=== PATIENT | male | born 1975 | race Caucasian/White ===

== ENCOUNTER 2021-08-30 07:55 | Emergency (ER) | payer BC, SELFPAY ==
--- NOTE | ~2021-08-30 | CT_ITS ---
EXAMINATION: CTA brain carotid DATE: 08/30/2021 15:16 INDICATION: Syncope. Headache. Dizziness. TECHNIQUE: Computed tomographic angiography (CTA) of the head was performed with 100 mL Omnipaque-350 intravenous contrast. CTA of the neck was performed with intravenous contrast. Automated exposure co ntrol and iterative reconstruction technique were employed. The dose-length product was 1233.77 mGy-c m. Maximum intensity projection and volume rendered 3D-reconstructions were created by the [employer] st on a separate workstation. COMPARISON: Head CT 08/30/2021 FINDINGS: HEAD CTA: There is no intracranial hemorrhage, acute infarction, or abnormal intracranial mass lesion . The ventricles are normal in size. The mastoid air cells are normal. There is mild mucosal thickeni ng in the paranasal sinuses. The orbits are normal. There are carious lesions of 2 left maxillary mol ars with periapical lucencies. Right vertebral artery is dominant. There is no significant stenosis o f basilar artery or the posterior cerebral arteries. There is no significant stenosis of the intracra nial internal carotid arteries or anterior or middle cerebral arteries. Anterior communicating artery is normal. The posterior communicating arteries are normal. There is no aneurysm. NECK CTA: There are no pathologically enlarged lymph nodes. There is no significant stenosis of the v ertebral arteries. There is mild plaque in the proximal internal carotid arteries. There is 0% stenos is of the proximal right internal carotid artery relative to normal distal artery lumen diameter (GONZÁLEZ CET criteria). There is 0% stenosis of the proximal left internal carotid artery relative to normal d istal artery lumen diameter. There is mild cervical spondylosis. IMPRESSION: 1. Normal brain. No aneurysm or significant intracranial arterial stenosis. 2. 0% stenosis of the proximal internal carotid arteries relative to normal distal artery lumen diame ters (NASCET criteria). Reviewed, dictated and finalized at location A. ICAL TEAM MANAGER IMPRESSION: 1. Normal brain. No aneurysm or significant intracranial arterial stenosis. 2. 0% stenosis of the proximal internal carotid arteries relative to normal dis markell artery lumen diameters (NASCET criteria).
--- NOTE | ~2021-08-30 | CT_ITS ---
EXAMINATION: CT brain wo con EXAM DATE: 08/30/2021 10:13 INDICATION: Headache. TECHNIQUE: Spiral CT of the head was performed without contrast. Axial, coronal and sagittal images were reviewed. The dose-length product (DLP) for this examination was 681.00 mGy-cm. The exposure w as tailored according to patient size, and iterative reconstruction (ASIR) was used as additional dos e reduction technique. There is no prior study for comparison. FINDINGS: There is no acute intraparenchymal hemorrhage. No evidence of intraparenchymal brain mass lesion. No evidence of acute infarction. There is no mass effect or midline shift. The ventricles are normal in size. There are no extra-axial collections. There are no acute calvarial fractures. T he orbits are unremarkable. Soft tissue is unremarkable. The visualized sinuses and mastoid air nikki ls are well aerated. IMPRESSION: 1. No acute intracranial findings. Reviewed, dictated and finalized at location A. SPORT RN
--- NOTE | ~2021-08-30 | XR_ITS ---
EXAMINATION: XR chest 1V EXAM DATE: 08/30/2021 08:47 INDICATION: Dizziness TECHNIQUE: Portable AP frontal chest x-ray was obtained. There are no prior studies for comparison. FINDINGS: The lungs are clear. There are no pleural effusions. The cardiomediastinal silhouette is within normal limits. There is no pneumothorax suspected. The bones and soft tissues are unremarkab le. IMPRESSION: No acute cardiopulmonary findings. Reviewed, dictated and finalized at location A. DEVELOPMENT DIRECTOR
[2021-08-30 08:01] VITALS: BP 186/105; PULSE 120; RESP 19; TEMP 36.9; O2SAT 99
--- NOTE | 2021-08-30 08:10 | ECG_ITS ---
Measurements Intervals [place] Rate: 137 P: 48 IN: 146 QRS: 104 QRSD: 99 T: -1 QT: 329 QTc: 498 Interpretive Statements SINUS TACHYCARDIA RIGHT AXIS DEVIATION BORDERLINE R WAVE PROGRESSION, ANTERIOR LEADS INFERIOR INFARCT, AGE INDETERMINATE ABNORMAL ECG Electronically Signed On 08-30-2021 10:43:09 AOC DIRECTOR COMBAT OPERATIONS OFFICER by Elvis Denton D.O.
--- NOTE | 2021-08-30 08:25 | ED.GENADULT ---
HPI - General Adult General Chief complaint: Dizziness Stated complaint: Headache,Nausea Time Seen by Provider: 08/30/21 08:17 Source: RN notes reviewed History of Present Illness HPI narrative: Patient presents emergency department from home for dizziness. Patient states that for the past month he has been having pain in his right shoulder and neck region states that he saw PCP for this and was started on Flexeril 2 days ago he states that this morning he had taken a Flexeril as well as 2 ibuprofens he states that following this he began to feel like his heart was racing he felt dizzy states is associated with a generalized headache as well as nausea. He states he feels lightheaded like he may pass out but is not had a syncopal episode he denies any fevers or chills chest pain shortness of breath abdominal pain diarrhea or any other Related Data Allergies Allergy/AdvReac Type Severity Reaction Status Date / Time No Known Allergies Allergy Verified 08/30/21 08:27 Review of Systems Review of Systems: Gen.: Denies fevers or chills Eyes: Denies eye pain or visual change ENT: Denies congestion Respiratory: Denies shortness of breath or cough CV: Denies chest pain reports heart racing and lightheadedness GI: Denies abdominal pain nausea, emesis or diarrhea denies burning, urgency, frequency or hematuria Musculoskeletal: Reports right shoulder neck pain Neuro: Reports dizziness and weakness Skin: Denies rash Except as documented, all other systems reviewed and negative [facility] Past Medical History Medical History (Updated 08/30/21 @ 16:55 by Nakul Gomez DO) Patient denies significant medical history Social History Social History (Updated 08/30/21 @ 08:27 by Nakul Gomez DO) Smoking status: Never smoker Exam Narrative: APPEARANCE: No acute distress, nontoxic, resting in bed EYES: EOMI, PERRL HEENT: Normocephalic, atraumatic, TMs clear bilaterally nares Neck: Supple no midline tenderness palpation temporal patient right paravertebral muscles C5-7 right trapezius region with point tenderness present pain worse with turning his head to the left RESPIRATORY: No respiratory distress Clear to auscultation bilaterally with no rhonchi wheezing or rales. CARDIOVASCULAR: Tachycardic and regular without murmurs rubs or gallops. ABDOMINAL: Soft, nontender, nondistended, no rebound or guarding MUSCULOSKELETAl: Moves all extremities. No clubbing, cyanosis or edema. NEURO: Awake and alert x 3. Following commands, speech normal, no focal deficits SKIN:: Warm, dry. No rashes lesions or abrasions PSYCHIATRIC: Normal affect/mood, Course Course Emergency Course: Patient states he is feeling much better at this time he has had sinus tachycardia in the low 100s at rest when I discussed with patient states he does note that on his Fitbit shows that when he does activity at work he is normally up around 1 10-1 15. Patient states he does not know what his normal heart rate is and does not have baseline on his Fitbit. He denies any chest pain or shortness of breath Called discussed Dr. Loaiza presentation and work-up. At this time with work-up negative feels patient may be discharged with follow-up as an outpatient Discussed with patient he is still having some pain in his right shoulder he still has point tenderness we will give Valium at this time as a question whether Flexeril was contributing to any symptoms Patient able to get up and ambulate in ED with myself he has no dizziness or weakness states he feels much better at this time Discussed with patient results of workup and diagnosis. Discussed need for follow-up with primary care, proper use of medication, and reasons to return to the emergency department. Patient understands and agrees to current treatment plan Vital Signs Vital signs: Vital Signs Temperature 98.5 F 08/30/21 08:01 Pulse Rate 120 H 08/30/21 08:01 Respiratory Rate 19 08/30/21 08:01 Blood Pressure 186
[2021-08-30 08:45] LABS: Basophils Absolute Auto 0.1 K/mm3 (0.0-0.1); Basophils Percent Auto 0.7 % (0.2-1.2); Eosinophils Absolute Auto 0.2 K/mm3 (0-0.3); Eosinophils Percent Auto 1.9 % (0-4.4); Hematocrit 45.8 % (42.0-52.0); Hemoglobin 15.4 g/dL (14.0-18.0); Immature Granulocyte Absolute 0.06 K/mm3 (0.00-0.031); Immature Granulocyte Percent A 0.6 % (0-0.5); Lymphocytes Absolute Auto 2.94 K/mm3 (0.9-3.2); Lymphocytes Percent Auto 28.2 % (18.3-44.2); Mean Corpuscular HGB Conc 33.6 g/dl (32-36); Mean Corpuscular Hemoglobin 30.6 pg (26-34); Mean Corpuscular Volume 90.9 fl (80-100); Mean Platelet Volume 10.5 fl (7.4-10.4); Monocytes Absolute Auto 0.9 K/mm3 (0.1-0.6); Monocytes Percent Auto 8.3 % (2.6-8.5); Neutrophils Absolute Auto 6.3 K/mm3 (1.3-6.7); Neutrophils Percent Auto 60.3 % (45.5-73.1); Platelet Count Result 291 k/mm3 (150-375); Red Blood Count 5.04 M/mm3 (4.6-6.20); Red Cell Distribution Width 14.2 % (11.5-14.5); White Blood Count 10.4 K/mm3 (4.5-10.0)
[2021-08-30 08:55] LABS: Prothrombin Time 12.6 Seconds (11.1-14.7)
[2021-08-30 08:56] LABS: Alanine Aminotransferase 67 U/L (4-50); Albumin Level 4.8 g/dL (3.5-5.1); Alkaline Phosphatase 100 U/L (38-126); Anion Gap 17 mmol/L (8-16); Aspartate Amino Transferase 44 U/L (17-59); Blood Urea Nitrogen 11 mg/dL (9-20); Calcium 9.5 mg/dL (8.4-10.2); Carbon Dioxide 18 mmol/L (22-30); Chloride 103 mmol/L (98-107); Estimated Glomerular Filt Rate > 60; Glucose 119 mg/dL (65-110); Partial Thromboplastin Time 26.7 SECONDS (22.3-36.8); Potassium 3.5 mmol/L (3.4-5.0); Sodium 138 mmol/L (137-145)
[2021-08-30] MEDS: SODIUM CHLORIDE 0.9% IV 1,000 ML 999 ML IV CONT ×2 (09:02→11:52)
[2021-08-30 09:05] LABS: Troponin I < 0.012 ng/mL (0.000-0.034)
--- NOTE | 2021-08-30 09:08 | PC.NURSE ---
Pt states he is unable to give urine sample at this time.
[2021-08-30 09:20] LABS: Magnesium 2.1 mg/dL (1.6-2.3)
[2021-08-30 10:04] LABS: Add Urine Microscopic? NO; Appearance Urine Clear (Clear); Bilirubin Urine Negative (Negative); Blood Urine Negative (Negative); Color Urine Yellow (Yellow); Glucose Urine UA Negative (Negative); Ketones Urine Negative (Negative); Leukocyte Esterase Ur Negative LEU/UL (Negative); Nitrate Urine Negative (Negative); Protein Urine Negative (Negative); Specific Grav Ur 1.019 (1.001-1.035); Urobilinogen Urine Negative mg/dL (<2.0)
[2021-08-30 10:41] VITALS: BP 138/89; PULSE 60; RESP 17; O2SAT 100
[2021-08-30 11:34] LABS: D Dimer 0.23 ug/mL (<0.48)
[2021-08-30 13:04] LABS: Troponin I < 0.012 ng/mL (0.000-0.034)
[2021-08-30] MEDS: KETOROLAC 30 MG/ML VIAL (*BKC) IV PUSH (13:32)
--- NOTE | 2021-08-30 13:55 | ECG_ITS ---
Measurements Intervals [place] Rate: 102 P: 29 [place]: 184 QRS: 72 QRSD: 96 T: 4 QT: 341 QTc: 444 Interpretive Statements SINUS TACHYCARDIA DELAYED PRECORDIAL R/S TRANSITION INFERIOR INFARCT, AGE INDETERMINATE ABNORMAL ECG Electronically Signed On 08-30-2021 17:29:02 ACCOUNTING FILE CLERK by Elvis Denton D.O.
[2021-08-30] MEDS: diazePAM (*CRX) 5 MG TABLET PO (16:58)
[2021-08-30 17:14] VITALS: PULSE 102; RESP 18; O2SAT 99
== END 2021-08-30 17:16 | disposition home or self-care (01) ==
PROVIDERS: Emergency Provider Emergency Medicine
DX: R55 Syncope and collapse (principal); S16.1XXA Strain of muscle, fascia and tendon at neck level, initial encounter; R00.0 Tachycardia, unspecified; X58.XXXA Exposure to other specified factors, initial encounter
CPT/HCPCS: 36415; 70450; 70496; 70498; 71045; 80053; 81003; 83735; 84443; 84484; 85025; 85380; 85610; 85730; 93005; 96361; 96374; 96375; 99284; A9270; J0131; J1885; J7030; Q9967